=== PATIENT | male | born 1975 | race Asian ===

== ENCOUNTER 2021-04-08 17:57 | Inpatient (IN) | payer MEDICARE ==
[2021-04-08] MEDS ORDERED: LORazepam 2 MG/ML VIAL ONE (18:30)
[2021-04-08] MEDS ORDERED: HALOPERIDOL LACTATE 5 MG/1 ML INJ IM PRN (19:58)
[2021-04-08] MEDS ORDERED: LORazepam 2 MG/ML VIAL IM PRN (19:58)
--- NOTE | 2021-04-08 19:59 | Emergency Department Report ---
ED General Adult HPI - General Chief complaint: Psych Stated complaint: I am fine, how are you PUI?: No Time Seen by Provider: 04/08/21 19:31 Source: patient, RN notes reviewed, old records reviewed Mode of arrival: Ambulatory Limitations: Altered Mental Status, Other (Disorganized behavior and altered mental status) - History of Present Illness Initial comments: The patient was evaluated in the emergency department for symptoms described in the history of present illness. He/she was evaluated in the context of the global COVID-19 pandemic, which necessitated consideration that the patient might be at risk for infection with the virus that causes COVID-19. Institutional protocols and algorithms that pertain to the evaluation of patients at risk for COVID-19 are in a state of rapid change based on information released by regulatory bodies including the CDC and federal and state organizations. These policies and algorithms were followed during the patient's care in the emergency department. Please note that these policies, procedures and recommendations changed on a rapid basis. The patient is a 46-year-old gentleman. He is not known to myself previously. He presented to the ER with a triage nurse articulated complaint of "presents to ER nonverbal staring into space." It is documented that he has a past medical history of psychiatric disease. The patient is not accompanied by friends or family at this time for additional information or collateral information. The patient denies physical pain. The patient denies homicidality/suicidality. The patient tells me that he lives in a foster home. He knows that he is at a hospital, knows the month, and is able to identify the president. He denies physical pain. However, he is very bizarre and disorganized. He cannot tell me why he is here. He is not quite sure how he arrived to this emergency room. He is not sure if he takes any medications. -: unknown - Related Data Allergies Allergy/AdvReac Type Severity Reaction Status Date / Time No Known Allergies Allergy Verified 04/08/21 18:03 ED Review of Systems ROS: Stated complaint: EVALUATION Other details as noted in HPI Comment: Unobtainable due to pts medical conditions Constitutional: denies: fever Eyes: denies: eye discharge ENT: denies: epistaxis Respiratory: denies: cough Cardiovascular: denies: chest pain Gastrointestinal: denies: abdominal pain Genitourinary: denies: dysuria Neurological: confusion Psychiatric: denies: homicidal thoughts, suicidal thoughts ED Past Medical Hx - Past Medical History Previous Medical History?: Yes Hx Psychiatric Treatment: Yes - Surgical History Past Surgical History?: No - Social History Smoking Status: Unknown if ever smoked Substance Use Type: None ED Physical Exam - General Limitations: Other (Disorganized behavior. Patient confusion.) General appearance: anxious - Head Head exam: Present: atraumatic, normocephalic - Eye Eye exam: Present: normal appearance, EOMI. Absent: nystagmus - ENT ENT exam: Present: normal exam, normal orophraynx, mucous membranes moist, normal external ear exam - Neck Neck exam: Present: normal inspection, full ROM. Absent: tenderness, meningismus - Respiratory Respiratory exam: Present: normal lung sounds bilaterally. Absent: respiratory distress, wheezes, rales, rhonchi, stridor, decreased breath sounds - Cardiovascular Cardiovascular Exam: Present: regular rate, normal rhythm, normal heart sounds. Absent: bradycardia, tachycardia, irregular rhythm, systolic murmur, diastolic murmur, rubs, gallop - GI/Abdominal GI/Abdominal exam: Present: soft. Absent: distended, tenderness, guarding, rebound, rigid, pulsatile mass - Rectal Rectal exam: Present: deferred - Extremities Exam Extremities exam: Present: normal inspection, full ROM, other (2+ pulses noted in the bilateral upper and lower extremities. There is no palpable cord. negative Homans sign. Muscular compartments are soft. The pelvis is stable.). Absent: pedal edema, calf tenderness - Back Exam Back exam: Present: normal inspection, full ROM. Absent: tenderness, CVA tenderness (R), CVA tenderness (L), paraspinal tenderness, vertebral tenderness - Neurological Exam Neurological exam: Present: altered, normal gait, reflexes normal, other (No facial droop. Tongue midline. Extraocular movements intact bilaterally. Facial sensation intact to light touch in V1, V2, V3 distribution bilaterally. 5 and a 5 strength in 4 extremities. Sensation intact to light touch in 4 extremities.). Absent: motor sensory deficit - Psychiatric Psychiatric exam: Present: flat affect. Absent: homicidal ideation, suicidal ideation - Skin Skin exam: Present: warm, dry, intact, normal color. Absent: rash ED Course Vital Signs 04/08/21 04/08/21 18:04 18:32 Pulse Rate 108 H Respiratory 16 Rate Blood Pressure 144/110 [Left] O2 Sat by Pulse 97 96 Oximetry - Reevaluation(s) Reevaluation #1: 04/08/21 21:38 Differential diagnosis, including but not limited to: Psychosis, psychogenic polydipsia, medical clearance for psychiatric placement, urinary tract in fection, pneumonia, electrolyte derangement, thyroid derangement Assessment and plan: 46-year-old gentleman presenting with disorganized behavior. He appears to be psychotic. He is not homicidal suicidal. He is cooperative. His physical exam so far is unremarkable. He walks with a steady gait. Laboratory studies demonstrate hyponatremia. Suspect that this is euvolemic, or hypervolemic hyponatremia. I will place this patient on fluid restriction. Urine studies are pending. He cannot be medically cleared from the emergency room for the purposes of psychiatric placement. A 1013 is ordered. Psychiatric consultation is ordered. I contacted the hand method lasting machine operator on-call, Dr. Renteria. Discussed the patient's history, physical, laboratory studies and imaging studies, plan of care, and overall clinical impression. She will follow in consultation. Recommends every 4 hours sodium checks. We both agree that patient does not require hypertonic saline at this time 04/08/21 21:39 Reevaluation #2: 04/08/21 21:41 Temperature is 97 degrees. 04/08/21 22:[address] scan of the brain is negative for acute findings. Hospital physician, Mary Jesus to admit to [facility] ED Medical Decision Making - Lab Data Result diagrams: 04/08/21 21:22 04/08/21 20:03 Vital Signs 04/08/21 04/08/21 18:04 18:32 Pulse Rate 108 H Respiratory 16 Rate Blood Pressure 144/110 [Left] O2 Sat by Pulse 97 96 Oximetry Lab Results 04/08/21 04/08/21 04/08/21 Range/Units 20:03 20:03 20:03 Sodium 123 L (137-145) mmol/L Potassium 3.9 (3.6-5.0) mmol/L Chloride 90.7 L (98-107) mmol/L Carbon Dioxide 21 L (22-30) mmol/L Anion Gap 15 mmol/L BUN 5 L (9-20) mg/dL Creatinine 0.9 (0.8-1.3) mg/dL Estimated GFR > 60 ml/min BUN/Creatinine Ratio 6 % Glucose 104 H (75-100) mg/dL Calcium 9.4 (8.4-10.2) mg/dL Total Creatine Kinase (55-170) units/L TSH (0.270-4.200) mlU/mL Salicylates < 0.3 L (2.8-20.0) mg/dL Acetaminophen 5.0 L (10.0-30.0) ug/mL Phenytoin 0.8 L (10.0-20.0) ug/mL Valproic Acid < 2.8 L (50-100) ug/mL [place] 0.7 (0.0-1.2) mmol/L Plasma/Serum Alcohol (0-0.07) % 04/08/21 04/08/21 04/08/21 Range/Units 20:03 20:03 20:03 Sodium (137-145) mmol/L Potassium (3.6-5.0) mmol/L Chloride (98-107) mmol/L Carbon Dioxide (22-30) mmol/L Anion Gap mmol/L BUN (9-20) mg/dL Creatinine (0.8-1.3) mg/dL Estimated GFR ml/min BUN/Creatinine Ratio % Glucose (75-100) mg/dL Calcium (8.4-10.2) mg/dL Total Creatine Kinase 344 H (55-170) units/L TSH 1.680 (0.270-4.200) mlU/mL Salicylates (2.8-20.0) mg/dL Acetaminophen (10.0-30.0) ug/mL Phenytoin (10.0-20.0) ug/mL Valproic Acid (50-100) ug/mL [place] (0.0-1.2) mmol/L Plasma/Serum Alcohol < 0.01 (0-0.07) % - EKG Data -: EKG Interpreted by [place] EKG shows normal: sinus rhythm Rate: normal - EKG Data When compared to previous EKG there are: previous EKG unavailable 04/08/21 21:22 The EKG is interpreted at 20: 07 Sinus rhythm, rate 84 bpm. Normal axis, QTC 440 ms. He has Q waves noted in inferior leads. He has low voltage in the lateral leads. This is an abnormal EKG. The EKG is not a STEMI 04/08/21 21:28 - Radiology Data Radiology results: pending, report reviewed, image reviewed CHEST 1 VIEW 04/08/2021 7:29 PM INDICATION / CLINICAL INFORMATION: Medical Clearance Psych. COMPARISON: None available. FINDINGS: SUPPORT DEVICES: None. HEART / MEDIASTINUM: No significant abnormality. LUNGS / PLEURA: No significant pulmonary or pleural abnormality. No pneumothorax. ADDITIONAL FINDINGS: No significant additional findings. IMPRESSION: 1. No acute findings. Signer Name: Pavel Zendejas MD Signed: 04/08/2021 7:32 PM Workstation Name: [id number] Critical care attestation.: If time is entered above; I have spent that time in minutes in the direct care of this critically ill patient, excluding procedure time. ED Disposition Clinical Impression: Hyponatremia, Disorganized behavior, Medical clearance for psychiatric admission Disposition: ADMITTED INPATIENT Is pt being admited?: Yes Does the pt Need Aspirin: No Condition: Good Referrals: PRIMARY CARE, [Primary Care Provider] - 3-5 Days
--- NOTE | 2021-04-08 20:37 | XRay Report ---
CHEST 1 VIEW 04/08/2021 7:29 PM INDICATION / CLINICAL INFORMATION: Medical Clearance Psych. COMPARISON: None available. FINDINGS: SUPPORT DEVICES: None. HEART / MEDIASTINUM: No significant abnormality. LUNGS / PLEURA: No significant pulmonary or pleural abnormality. No pneumothorax. ADDITIONAL FINDINGS: No significant additional findings. IMPRESSION: 1. No acute findings. Signer Name: Pavel Zendejas MD Signed: 04/08/2021 8:32 PM Workstation Name: [id number]
[2021-04-08 20:54] LABS: BUN/Creatinine Ratio 6; Blood Urea Nitrogen 5 mg/dL (9-20); Calcium 9.4 mg/dL (8.4-10.2); Hemolysis Index 20
[2021-04-08 21:31] LABS: Basophils # (Auto) 0.1 K/mm3 (0.0-0.1); Basophils % (Auto) 0.7 % (0.0-1.8); Hematocrit 35.8 % (35.5-45.6); Hemoglobin 12.1 gm/dl (11.8-15.2); Lymphocytes % (Auto) 30.5 % (13.4-35.0); Mean Corpuscular HGB Conc 34 % (32-34); Mean Corpuscular Volume 94 fl (84-94); Monocytes # (Auto) 0.6 K/mm3 (0.0-0.8); Monocytes % (Auto) 6.4 % (0.0-7.3); Platelet Count 366 K/mm3 (140-440); Red Blood Count 3.83 M/mm3 (3.65-5.03); Red Cell Distribution Width 12.8 % (13.2-15.2)
--- NOTE | 2021-04-08 21:39 | Cat Scan Report ---
CT BRAIN: 04/08/2021 INDICATION / CLINICAL INFORMATION: Medical Clearance Psych. COMPARISON: None available. FINDINGS: BRAIN/INTRACRANIAL STRUCTURES: Unenhanced CT images of the brain demonstrate no evidence of intracran ial abnormality. Ventricles and sulci are normal in size and shape. There is no evidence of ischemic injury, hemorrhage, or mass. There are no abnormal extra-axial fluid collections. EXTRACRANIAL STRUCTURES: Unremarkable. IMPRESSION: Negative unenhanced CT of the brain. All CT scans at this location are performed using dose reduction to ALARA by means of automated expos ure control. Signer Name: Silas Garsia MD Signed: 04/08/2021 9:35 PM Workstation Name: [id number]
--- NOTE | 2021-04-08 21:51 | Event Note ---
Date: 04/08/21 Consulted for moderate hyponatremia Patient with history of psych disorder, details unknown, details unavailable at this time as patient is poor historian and is unaccompanied. No prior history or medications present on chart review, possibly has underlying schizophrenia based on limited history available Patient is currently not comatosed, he has no nausea, vomiting, headaches or seizures. Unclear baseline mental status but is oriented x 2. No immediate indication for hypertonic saline Check sodium q4h with close/frequent monitoring of neuro status Check urine studies - ordered Check serum and urine osm - ordered Fluid restriction to 1 L Start sodium chloride tabs Please notify if sodium continues to decline, if decline in mental status is noticed or patient experiences vomiting, headaches or seizures. Gina Sandoval MD
[2021-04-08] MEDS ORDERED: MAGNESIUM HYDROXIDE (MOM) ORAL LIQD UDC PO PRN (22:28)
[2021-04-08] MEDS ORDERED: MORPHINE 4 MG/1 ML INJ IV PRN (22:28)
[2021-04-08] MEDS ORDERED: ONDANSETRON 4 MG/2 ML INJ IV PRN (22:28)
[2021-04-08] MEDS ORDERED: MORPHINE 2 MG/1 ML INJ IV PRN (22:28)
[2021-04-08] MEDS ORDERED: ACETAMINOPHEN 325 MG TAB PO PRN (22:28)
--- NOTE | 2021-04-08 22:32 | History and Physical Report ---
History of Present Illness Date of examination: 04/08/21 Date of admission: 04/08/2021 Chief complaint: Altered mental status History of present illness: 46-year-old -Tongan male with known history of mental illness who lives in a foster home was brought into the emergency room today because of bizarre and disorganized behavior. Most of the history was gotten from the ER staff as patient is now willing to give any history at this time. He however is not very clear as to how he arrived in the emergency room. He will not answer any further questions. According to ER staff he was able to respond to some questions earlier today. He denies any homicidal suicidal ideations at that time. He is not sure if he takes any medications. Patient is here for medical clearance for further psychiatric evaluation. Work-up in the emergency room today, significant findings were that of sodium of 123. Urine studies is currently being awaited. CT scan of the head is negative Facsimile Operator on-call was consulted by ER physician and recommendation is to have patient on fluid restriction. BMP every 4 hours and also to be placed on sodium tablets. Past History Past Medical History: other Past Surgical History: Other (Unobtainable) Social history: other (Patient lives in a foster home) Family history: other (Unobtainable) Medications and Allergies Allergies Allergy/AdvReac Type Severity Reaction Status Date / Time No Known Allergies Allergy Verified 04/08/21 18:03 Active Meds: Active Medications Haloperidol Lactate (Haloperidol Lactate 5 Mg/1 Ml Inj) 5 mg IM Q6HR PRN PRN Reason: Agitation Lorazepam (Lorazepam 2 Mg/Ml Vial) 2 mg IM Q4HR PRN PRN Reason: Agitation Sodium Chloride (Sodium Chloride 1 Gm Tab) 1 gm PO TID LORI Review of Systems ROS unobtainable: due to mental status Exam - Constitutional Vitals: Temp Pulse Resp BP Pulse Ox 108 H 16 144/110 96 04/08/21 18:04 04/08/21 18:04 04/08/21 18:04 04/08/21 18:32 General appearance: Present: no acute distress, well-nourished - EENT Eyes: Present: PERRL, EOM intact, scleral icterus ENT: hearing intact, clear oral mucosa, dentition normal - Neck Neck: Present: supple, normal ROM - Respiratory Respiratory effort: normal Respiratory: bilateral: CTA - Cardiovascular Rhythm: regular Heart Sounds: Present: S1 & S2. Absent: gallop, systolic murmur, diastolic murmur, rub, click - Extremities Extremities: no ischemia, pulses intact, pulses symmetrical, No edema, normal temperature, normal color, Full ROM Peripheral Pulses: within normal limits - Abdominal General gastrointestinal: Present: soft, non-tender, non-distended, normal bowel sounds. Absent: mass - Integumentary Integumentary: Present: clear, warm, dry, normal turgor. Absent: rash - Musculoskeletal Musculoskeletal: strength equal bilaterally - Psychiatric Psychiatric: appropriate mood/affect, intact judgment & insight, memory intact, cooperative - Neurologic Neurologic: CNII-XII intact, no focal deficits, moves all extremities Results - Labs CBC & Chem 7: 04/08/21 21:22 04/08/21 20:03 Labs: Abnormal lab results 04/08/21 04/08/21 04/08/21 Range/Units 20:03 20:03 20:03 RDW (13.2-15.2) % Sodium 123 L (137-145) mmol/L Chloride 90.7 L (98-107) mmol/L Carbon Dioxide 21 L (22-30) mmol/L BUN 5 L (9-20) mg/dL Glucose 104 H (75-100) mg/dL Total Creatine Kinase (55-170) units/L Salicylates < 0.3 L (2.8-20.0) mg/dL Acetaminophen 5.0 L (10.0-30.0) ug/mL Phenytoin 0.8 L (10.0-20.0) ug/mL Valproic Acid < 2.8 L (50-100) ug/mL 04/08/21 04/08/21 Range/Units 20:03 21:22 RDW 12.8 L (13.2-15.2) % Sodium (137-145) mmol/L Chloride (98-107) mmol/L Carbon Dioxide (22-30) mmol/L BUN (9-20) mg/dL Glucose (75-100) mg/dL Total Creatine Kinase 344 H (55-170) units/L Salicylates (2.8-20.0) mg/dL Acetaminophen (10.0-30.0) ug/mL Phenytoin (10.0-20.0) ug/mL Valproic Acid (50-100) ug/mL Assessment and Plan - Patient Problems (1) Disorganized behavior Current Visit: Yes Status: Acute Plan to address problem: Patient has known history of mental illness. Will monitor mental status and place consult to mental health for further evaluation. (2) Hyponatremia Current Visit: Yes Status: Acute Plan to address problem: Patient to be placed on fluid restriction and also placed on sodium tablets. Consult placed to nephrology for evaluation. (3) DVT prophylaxis Current Visit: Yes Status: Acute Plan to address problem: We will place patient on subcutaneous heparin. (4) Full code status Current Visit: Yes Status: Acute Plan to address problem: Patient is full code.
[2021-04-08 23:56] LABS: BUN/Creatinine Ratio 6; Blood Urea Nitrogen 5 mg/dL (9-20); Hemolysis Index 3
[2021-04-09 02:59] LABS: BUN/Creatinine Ratio 6; Blood Urea Nitrogen 5 mg/dL (9-20); Hemolysis Index 8
[2021-04-09] MEDS: HEPARIN 5,000 UNIT/1 ML VIAL SUB-Q SCH ×3 (05:50→21:10)
[2021-04-09 05:51] LABS: Bilirubin,Urine NEG (Negative); Blood,Urine NEG (Negative); Color,Urine Colorless (Yellow); Protein,Urine <15 mg/dL mg/dL (Negative); RBC,Urine < 1.0 /HPF (0.0-6.0); Urobilinogen,Urine < 2.0 mg/dL (<2.0)
[2021-04-09 06:03] LABS: WBC,Urine < 1.0 /HPF (0.0-6.0)
[2021-04-09 06:16] LABS: Amphetamine Screen,Urine PRESUMPTIVE NEGATIVE; Benzodiazepines Screen,Urine PRESUMPTIVE NEGATIVE; Cannabinoid Screen,Urine PRESUMPTIVE NEGATIVE; Cocaine Screen,Urine PRESUMPTIVE NEGATIVE; Methadone Screen,Urine PRESUMPTIVE NEGATIVE; Opiate Screen,Urine PRESUMPTIVE NEGATIVE
[2021-04-09 06:43] LABS: Creatinine,Urine 20.3 mg/dL (0.1-20.0)
[2021-04-09 09:41] LABS: Osmolality,Urine 49 Mosm/kg
--- NOTE | 2021-04-09 09:47 | Consultation ---
History of Present Illness - Reason for Consult Consult date: 04/09/21 hyponatremia Requesting physician: PAMELLA SERRANO - History of Present Illness 46-year-old -Y[place]i male with known history of mental illness who lives in a foster home was brought into the emergency room yesterday because of bizarre and disorganized behavior. Most of the history was gotten from patient's admission records as patient is a poor historian. He will not answer any further questions. He denies any homicidal suicidal ideations at that time. He is not sure if he takes any medications. Patient is here for medical clearance for further psychiatric evaluation. Work-up in the emergency room today, significant findings were that of sodium of 123. Therefore this consultation . CT scan of the head is negative. Patient does admit to drinking a lot of water. Patient denies any nausea vomiting or diarrhea at this time Past History Past Medical History: other (Unknown) Past Surgical History: Other (Unobtainable) Social history: other (Patient lives in a foster home) Family history: other (Unobtainable) Medications and Allergies Allergies Allergy/AdvReac Type Severity Reaction Status Date / Time No Known Allergies Allergy Verified 04/08/21 18:03 Active Meds: Active Medications Acetaminophen (Acetaminophen 325 Mg Tab) 650 mg PO Q4H PRN PRN Reason: Pain MILD(1-3)/Fever >100.5/BLANCO Haloperidol Lactate (Haloperidol Lactate 5 Mg/1 Ml Inj) 5 mg IM Q6HR PRN PRN Reason: Agitation Heparin Sodium (Porcine) (Heparin 5,000 Unit/1 Ml Vial) 5,000 unit SUB-Q Q8HR LORI Last Admin: 04/09/21 05:50 Dose: 5,000 unit Documented by: Lorazepam (Lorazepam 2 Mg/Ml Vial) 2 mg IM Q4HR PRN PRN Reason: Agitation Magnesium Hydroxide (Magnesium Hydroxide (Mom) Oral Liqd Udc) 30 ml PO Q4H PRN PRN Reason: Constipation Morphine Sulfate (Morphine 2 Mg/1 Ml Inj) 2 mg IV Q4H PRN PRN Reason: Pain, Moderate (4-6) Morphine Sulfate (Morphine 4 Mg/1 Ml Inj) 4 mg IV Q4H PRN PRN Reason: Pain , Severe (7-10) Ondansetron HCl (Ondansetron 4 Mg/2 Ml Inj) 4 mg IV Q8H PRN PRN Reason: Nausea And Vomiting Sodium Chloride (Sodium Chloride 1 Gm Tab) 1 gm PO TID LORI Sodium Chloride (Sodium Chloride 0.9% 10 Ml Flush Syringe) 10 ml IV BID LORI Sodium Chloride (Sodium Chloride 0.9% 10 Ml Flush Syringe) 10 ml IV PRN PRN PRN Reason: LINE FLUSH Review of Systems ROS unobtainable: due to mental status Exam - Vital Signs Vital signs: Vital Signs Pulse Resp BP Pulse Ox 108 H 16 144/110 97 04/08/21 18:04 04/08/21 18:04 04/08/21 18:04 04/08/21 18:04 - General Appearance General appearance: well-developed, well-nourished, appears stated age EENT: PERRL, mucous membranes moist Neck: Present: neck supple Respiratory: Clear to Ascultation Heart: regular, normal heart rate Gastrointestinal: Present: normal, normoactive bowel sounds Integumentary: other Results - Lab Results 04/08/21 21:22 04/09/21 02:17 Most recent lab results Calcium 9.0 mg/dL (8.4-10.2) 04/09/21 02:17 Urine Creatinine 20.3 mg/dL (0.1-20.0) H 04/09/21 05:30 Urine Sodium 10 mmol/L 04/09/21 05:30 Assessment and Plan Impression * Hyponatremia * History of psychiatric disorder Recommendations * Patient is clinically euvolemic at this time. 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 Patient does admit to drinking a lot of water. His urine specific gravity is also very low and patient is self diuresing at this time. His urine osmolality is 49 and urine sodium is 10 * Serum sodium is slowly improving. Work-up for hyponatremia as ordered * Shall restrict free water intake and monitor serum sodium closely. If rise of serum sodium is too rapid, may need to add hypotonic fluid * Avoid medications that can aggravate hyponatremia * Thank you very much for the consultation. Shall follow along with you
--- NOTE | 2021-04-09 11:31 | Consultation ---
History of Present Illness - Reason for Consult Consult date: 04/09/21 Reason for consult: phsychosis - History of Present Psychiatric Illness Per ER Note: The patient is a 46-year-old gentleman. He is not known to myself previously. He presented to the ER with a triage nurse articulated complaint of "presents to ER nonverbal staring into space." It is documented that he has a past medical history of psychiatric disease. The patient is not accompanied by friends or family at this time for additional information or collateral information. The patient denies physical pain. The patient denies homicidality/suicidality. The patient tells me that he lives in a foster home. He knows that he is at a hospital, knows the month, and is able to identify the president. He denies physical pain. However, he is very bizarre and disorganized. He cannot tell me why he is here. He is not quite sure how he arrived to this emergency room. He is not sure if he takes any medications. Jl Garces is a 46/o male patient I evaluated today. During my evaluation the patient is lying in bed awake. He appears to be responding to internal stimuli. He is staring intensely. He is slow to respond, and I have to repeat questions 2 and 3 times before he answers. The patient is a/o x 3, but his thoughts are disorganized. He has poor insight. He tells me that he is doing "good and bad." He says he has a history of schizophrenia and takes "ativan, klonopin, clozaril, trazodone and seroquel." The patient also says "I have a concussion, I mean a relapse cussion." He says he's " and ." He says he hears voices, of people singing and music. He says he sees images of animated figures. He denies SI/HI Psych History Diagnoses: schizophrenia Suicide attempts or Self-harm behavior: Denies Prior psychiatric hospitalizations: Yes Substance Abuse history: Denies Previous psychiatric medications tried: ativan, klopin, clozaril, trazodone, seroquel Outpatient treatment: Yes PAST MEDICAL HISTORY: none reported Family Psychiatric History: None reported or documented SOCIAL HISTORY Marital Status: /. Living Arrangements: Homeless Employment Status: Disabled Access to guns/weapons: Denies Education: History of Abuse: Denies Legal History: None reported REVIEW OF SYSTEMS Constitutional: Negative for weight loss ENT: Negative for stridor Respiratory: Negative for cough or hemoptysis All other systems reviewed and are negative MENTAL STATUS EXAMINATION General Appearance and Behavior: Age appropriate, good hygiene, wearing appropriate clothes, calm, staring intensely Cooperation: participating Psychomotor Behavior: unremarkable and within normal limits Mood: "good and bad" Affect and affective range: flat Thought Process: disorganized, responding to internal stimuli Thought Content: None Speech: Normal volume, Regular rate and rhythm, Suicidal Ideation: Denies Homicidal Ideation:Denies Hallucinations: A/V Delusions: None elicited Impulse Control: Limited Insight and Judgment: Poor insight and poor judgment, Memory: Limited Attention: Distracted Orientation: Alert, oriented Assessment and Plan (1) Schizophrenia Current Visit: Yes Status: Acute Treatment Plan 1013 Klonopin 0.25mg po BID Trazodone 50mg po qhs Seroquel 50mg po BID Sitter: per primary Medical: per primary Disposition: Recommend acute psychiatric inpatient treatment once medically cleared Will follow. Thanks Case staffed with Dr. Streeter Medications and Allergies Allergies Allergy/AdvReac Type Severity Reaction Status Date / Time No Known Allergies Allergy Verified 04/08/21 18:03 Active Meds: Active Medications Acetaminophen (Acetaminophen 325 Mg Tab) 650 mg PO Q4H PRN PRN Reason: Pain MILD(1-3)/Fever >100.5/BLANCO Haloperidol Lactate (Haloperidol Lactate 5 Mg/1 Ml Inj) 5 mg IM Q6HR PRN PRN Reason: Agitation Heparin Sodium (Porcine) (Heparin 5,000 Unit/1 Ml Vial) 5,000 unit SUB-Q Q8HR [facility] Last Admin: 04/09/21 05:50 Dose: 5,000 unit Documented by: Lorazepam (Lorazepam 2 Mg/Ml Vial) 2 mg IM Q4HR PRN PRN Reason: Agitation Magnesium Hydroxide (Magnesium Hydroxide (Mom) Oral Liqd Udc) 30 ml PO Q4H PRN PRN Reason: Constipation Morphine Sulfate (Morphine 2 Mg/1 Ml Inj) 2 mg IV Q4H PRN PRN Reason: Pain, Moderate (4-6) Morphine Sulfate (Morphine 4 Mg/1 Ml Inj) 4 mg IV Q4H PRN PRN Reason: Pain , Severe (7-10) Ondansetron HCl (Ondansetron 4 Mg/2 Ml Inj) 4 mg IV Q8H PRN PRN Reason: Nausea And Vomiting Sodium Chloride (Sodium Chloride 1 Gm Tab) 1 gm PO TID LORI Sodium Chloride (Sodium Chloride 0.9% 10 Ml Flush Syringe) 10 ml IV BID LORI Sodium Chloride (Sodium Chloride 0.9% 10 Ml Flush Syringe) 10 ml IV PRN PRN PRN Reason: LINE FLUSH Mental Status Exam - Vital signs Last Vital Signs Temp 97.8 F 04/09/21 03:28 Pulse 73 04/09/21 03:28 Resp 18 04/09/21 05:03 BP 136/95 04/09/21 03:28 Pulse Ox 98 04/09/21 05:03 Results Result Diagrams: 04/08/21 21:22 04/09/21 02:17 Abnormal lab results 04/08/21 04/08/21 04/08/21 Range/Units 20:03 20:03 20:03 RDW (13.2-15.2) % Sodium 123 L (137-145) mmol/L Potassium (3.6-5.0) mmol/L Chloride 90.7 L (98-107) mmol/L Carbon Dioxide 21 L (22-30) mmol/L BUN 5 L (9-20) mg/dL Glucose 104 H (75-100) mg/dL Total Creatine Kinase (55-170) units/L Ur Specific [place] (1.003-1.030) Urine Creatinine (0.1-20.0) mg/dL Urine Chloride (110-250) mmolL Salicylates < 0.3 L (2.8-20.0) mg/dL Acetaminophen 5.0 L (10.0-30.0) ug/mL Phenytoin 0.8 L (10.0-20.0) ug/mL Valproic Acid < 2.8 L (50-100) ug/mL 04/08/21 04/08/21 04/08/21 Range/Units 20:03 21:22 23:08 RDW 12.8 L (13.2-15.2) % Sodium 126 L (137-145) mmol/L Potassium 3.4 L (3.6-5.0) mmol/L Chloride 94.3 L (98-107) mmol/L Carbon Dioxide 20 L (22-30) mmol/L BUN 5 L (9-20) mg/dL Glucose 105 H (75-100) mg/dL Total Creatine Kinase 344 H (55-170) units/L Ur Specific [place] (1.003-1.030) Urine Creatinine (0.1-20.0) mg/dL Urine Chloride (110-250) mmolL Salicylates (2.8-20.0) mg/dL Acetaminophen (10.0-30.0) ug/mL Phenytoin (10.0-20.0) ug/mL Valproic Acid (50-100) ug/mL 04/09/21 04/09/21 04/09/21 Range/Units 02:17 05:30 05:30 RDW (13.2-15.2) % Sodium 128 L (137-145) mmol/L Potassium 3.4 L (3.6-5.0) mmol/L Chloride 95.9 L (98-107) mmol/L Carbon Dioxide 21 L (22-30) mmol/L BUN 5 L (9-20) mg/dL Glucose (75-100) mg/dL Total Creatine Kinase (55-170) units/L Ur Specific [place] 1.001 L (1.003-1.030) Urine Creatinine 20.3 H (0.1-20.0) mg/dL Urine Chloride 10.0 L (110-250) mmolL Salicylates (2.8-20.0) mg/dL Acetaminophen (10.0-30.0) ug/mL Phenytoin (10.0-20.0) ug/mL Valproic Acid (50-100) ug/mL All other labs normal.
--- NOTE | 2021-04-09 11:47 | Progress Note ---
Assessment and Plan Assessment and plan: 46-year-old -Citizen Of [place] male with known history of mental illness who lives in a foster home was brought into the emergency room today because of bizarre and disorganized behavior. Most of the history was gotten from the ER staff as patient is now willing to give any history at this time. He however is not very clear as to how he arrived in the emergency room. He will not answer any further questions. According to ER staff he was able to respond to some questions earlier today. He denies any homicidal suicidal ideations at that time. He is not sure if he takes any medications. Patient is here for medical clearance for further psychiatric evaluation. Work-up in the emergency room today, significant findings were that of sodium of 123. Urine studies is currently being awaited. CT scan of the head is negative Business Intelligence Analyst on-call was consulted by ER physician and recommendation is to have patient on fluid restriction. BMP every 4 hours and also to be placed on sodium tablets. 04/09: Patient who also is a 1013 has been seen by psychiatry believes this underlying schizophrenia and takes "ativan, klonopin, clozaril, trazodone and seroque He has a history that includes medications such as He lives with a foster family. Per the act team from [place] the patient has recurrent h yponatremia this could be related to his insatiable intake of fluids. We will continue to monitor for gradual correction. [place] facility believes that they may be able to take the patient to their facility tomorrow as the patient requires inpatient psych management. (1) schizophrenia Current Visit: Yes Status: Acute Plan to address problem: Patient has known history of mental illness. Will monitor mental status and place consult to mental health for further evaluation. (2) Hyponatremia Current Visit: Yes Status: Acute Plan to address problem: Patient to be placed on fluid restriction and also placed on sodium tablets. Consult placed to nephrology for evaluation. (3) DVT prophylaxis Current Visit: Yes Status: Acute Plan to address problem: We will place patient on subcutaneous heparin. (4) Full code status Current Visit: Yes Status: Acute Plan to address problem: Patient is full code. History Interval history: Patient seen and examined this morning he looks at me but does not answer any questions. Although the nurse states that he answered some questions. Someone from [place] act team did call me although they ultimately spoke to the psych team here. They reported that the patient has insatiable water intake and has had recurrent hyponatremia as a result. Hospitalist Physical - Physical exam Narrative exam: VITAL SIGNS: Reviewed. GENERAL: The patient appears normally developed, Vital signs as documented. HEAD: No signs of head trauma. EYES: Pupils are equal. Extraocular motions intact. EARS: Hearing grossly intact. MOUTH: Oropharynx is normal. NECK: No adenopathy, no JVD. CHEST: Chest with clear breath sounds bilaterally. No wheezes, rales, or rhonchi. CARDIAC: Regular rate and rhythm. S1 and S2, without murmurs, gallops, or rubs. VASCULAR: No Edema. Peripheral pulses normal and equal in all extremities. ABDOMEN: Soft, non tender and non distended. No rebound or guarding, and no masses palpated. Bowel Sounds normal. MUSCULOSKELETAL: Good range of motion of all major joints. Extremities without clubbing, cyanosis or edema. NEUROLOGIC EXAM: Awake but not speaking at least to me but spoke to the nurse. Follows some commands. No focal sensory or strength deficits. PSYCHIATRIC: Mood normal. SKIN: detail exam as documented in skin assessment - Constitutional Vitals: Temp Pulse Resp BP Pulse Ox 97.8 F 73 18 136/95 98 04/09/21 03:28 04/09/21 03:28 04/09/21 05:03 04/09/21 03:28 04/09/21 05:03 General appearance: Present: no acute distress, well-nourished Results - Labs CBC & Chem 7: 04/08/21 21:22 04/09/21 13:01 Labs: Laboratory Last Values WBC 9.9 K/mm3 (4.5-11.0) 04/08/21 21: RBC 3.83 M/mm3 (3.65-5.03) 04/08/21 21: Hgb 12.1 gm/dl (11.8-15.2) 04/08/21: Hct 35.8 % (35.5-45.6) 04/08/21 21: MCV 94 fl (84-94) 04/08/21 21: MCH 32 pg (28-32) 04/08/21: MCHC 34 % (32-34) 04/08/21: RDW 12.8 % (13.2-15.2) L 04/08/21 21:22 Plt Count 366 K/mm3 (140-440) 04/08/21 21:22 Lymph % (Auto) 30.5 % (13.4-35.0) 04/08/21 21:22 Cache % (Auto) 6.4 % (0.0-7.3) 04/08/21 21:22 Eos % (Auto) 0.0 % (0.0-4.3) 04/08/21 21:22 Baso % (Auto) 0.7 % (0.0-1.8) 04/08/21 21:22 Lymph # (Auto) 3.0 K/mm3 (1.2-5.4) 04/08/21 21:22 Cache # (Auto) 0.6 K/mm3 (0.0-0.8) 04/08/21 21:22 Eos # (Auto) 0.0 K/mm3 (0.0-0.4) 04/08/21 21:22 Baso # (Auto) 0.1 K/mm3 (0.0-0.1) 04/08/21 21:22 Seg Neutrophils % 62.4 % (40.0-70.0) 04/08/21 21: Seg Neutrophils # 6.2 K/mm3 (1.8-7.7) 04/08/21 21:22 Sodium 128 mmol/L (137-145) L 04/09/21 02:17 Potassium 3.4 mmol/L (3.6-5.0) L 04/09/21 02:17 Chloride 95.9 mmol/L (98-107) L 04/09/21 02:17 Carbon Dioxide 21 mmol/L (22-30) L 04/09/21 02:17 Anion Gap 15 mmol/L 04/09/21 02:17 BUN 5 mg/dL (9-20) L 04/09/21 02:17 Creatinine 0.9 mg/dL (0.8-1.3) 04/09/21 02:17 Estimated GFR > 60 ml/min 04/09/21 02:17 BUN/Creatinine Ratio 6 % 04/09/21 02:17 Glucose 99 mg/dL (75-100) 04/09/21 02:17 Osmolality 257 Mosm/kg 10/12/21 21:35 Calcium 9.0 mg/dL (8.4-10.2) 04/09/21 02:17 Total Creatine Kinase 344 units/L (55-170) H 04/08/21 20:03 TSH 1.680 mlU/mL (0.270-4.200) 04/08/21 20:03 Urine Color Colorless (Yellow) 04/09/21 05:30 Urine Turbidity Clear (Clear) 04/09/21 05:30 Urine pH 6.0 (5.0-7.0) 04/09/21 05:30 Ur Specific [place] 1.001 (1.003-1.030) L 04/09/21 05:30 Urine Protein <15 mg/dl mg/dL (Negative) 04/09/21 05:30 Urine Glucose (UA) Neg mg/dL (Negative) 04/09/21 05:30 Urine Ketones Neg mg/dL (Negative) 04/09/21 05:30 Urine Blood Neg (Negative) 04/09/21 05:30 Urine Nitrite Neg (Negative) 04/09/21 05:30 Urine Bilirubin Neg (Negative) 04/09/21 05:30 Urine Urobilinogen < 2.0 mg/dL (<2.0) 04/09/21 05:30 Ur Leukocyte Esterase Neg (Negative) 04/09/21 05:30 Urine WBC (Auto) < 1.0 /HPF (0.0-6.0) 04/09/21 05:30 Urine RBC (Auto) < 1.0 /HPF (0.0-6.0) 04/09/21 05:30 Urine Osmolality 49 Mosm/kg 04/09/21 05:30 Urine Creatinine 20.3 mg/dL (0.1-20.0) H 04/09/21 05:30 Urine Sodium 10 mmol/L 04/09/21 05:30 Urine Potassium 2.16 mmol/L 04/09/21 05:30 Urine Chloride 10.0 mmolL (110-250) L 04/09/21 05:30 Salicylates < 0.3 mg/dL (2.8-20.0) L 04/08/21 20:03 Urine Opiates Screen Presumptive negative 04/09/21 05:30 Urine Methadone Screen Presumptive negative 04/09/21 05:30 Acetaminophen 5.0 ug/mL (10.0-30.0) L 04/08/21 20:03 Ur Barbiturates Screen Presumptive negative 04/09/21 05:30 Phenytoin 0.8 ug/mL (10.0-20.0) L 04/08/21 20:03 Valproic Acid < 2.8 ug/mL (50-100) L 04/08/21 20:03 Ur Phencyclidine Scrn Presumptive negative 04/09/21 05:30 Ur Amphetamines Screen Presumptive negative 04/09/21 05:30 U Benzodiazepines Scrn Presumptive negative 04/09/21 05:30 Tea 0.7 mmol/L (0.0-1.2) 04/08/21 20:03 Urine Cocaine Screen Presumptive negative 04/09/21 05:30 U Marijuana (THC) Screen Presumptive negative 04/09/21 05:30 Drugs of Abuse Note Disclamer 04/09/21 05:30 Plasma/Serum Alcohol < 0.01 % (0-0.07) 04/08/21 20:03 Shelton/IV: Voiding Method Urinal Active Medications - Current Medications Current Medications: Generic Name Dose Route Start Last Admin Trade Name Freq PRN Reason Stop Dose Admin Acetaminophen 650 mg 04/08/21 22:28 Acetaminophen 325 Mg Tab PO Q4H PRN Pain MILD(1-3)/Fever >100.5/BLANCO Haloperidol Lactate 5 mg 04/08/21 19:58 Haloperidol Lactate 5 Mg/1 Ml Inj IM Q6HR PRN Agitation Heparin Sodium (Porcine) 5,000 unit 04/09/21 06:00 04/09/21 05:50 Heparin 5,000 Unit/1 Ml Vial SUB-Q 5,000 unit Q8HR LORI Administration Lorazepam 2 mg 04/08/21 19:58 Lorazepam 2 Mg/Ml Vial IM Q4HR PRN Agitation Magnesium Hydroxide 30 ml 04/08/21 22:28 Magnesium Hydroxide (Mom) Oral Liqd Udc PO Q4H PRN Constipation Morphine Sulfate 2 mg 04/08/21 22:28 Morphine 2 Mg/1 Ml Inj IV Q4H PRN Pain, Moderate (4-6) Morphine Sulfate 4 mg 04/08/21 22:28 Morphine 4 Mg/1 Ml Inj IV Q4H PRN Pain , Severe (7-10) Ondansetron HCl 4 mg 04/08/21 22:28 Ondansetron 4 Mg/2 Ml Inj IV Q8H PRN Nausea And Vomiting Sodium Chloride 1 gm 04/09/21 08:00 Sodium Chloride 1 Gm Tab PO TID LORI Sodium Chloride 10 ml 04/09/21 10:00 Sodium Chloride 0.9% 10 Ml Flush Syringe IV BID LORI Sodium Chloride 10 ml 04/08/21 22:28 Sodium Chloride 0.9% 10 Ml Flush Syringe IV PRN PRN LINE FLUSH
[2021-04-09] MEDS: clonazePAM 0.5 MG TAB PO SCH ×2 (13:03→21:10)
[2021-04-09] MEDS: SODIUM CHLORIDE 1 GM TAB PO SCH ×2 (13:03→15:35)
[2021-04-09] MEDS: QUEtiapine 25 MG TAB PO SCH ×2 (13:04→21:10)
[2021-04-09 14:11] LABS: BUN/Creatinine Ratio 5; Blood Urea Nitrogen 5 mg/dL (9-20); Hemolysis Index 2
[2021-04-09] MEDS ORDERED: traZODone 50 MG TAB PO SCH (22:00)
[2021-04-10 00:19] LABS: BUN/Creatinine Ratio 8; Blood Urea Nitrogen 9 mg/dL (9-20); Calcium 9.3 mg/dL (8.4-10.2); Hemolysis Index 2
[2021-04-10 05:28] VITALS: BP 107/68
[2021-04-10] MEDS: HEPARIN 5,000 UNIT/1 ML VIAL SUB-Q SCH (06:11)
[2021-04-10 06:32] LABS: BUN/Creatinine Ratio 7; Blood Urea Nitrogen 7 mg/dL (9-20); Calcium 8.8 mg/dL (8.4-10.2); Hemolysis Index 7
--- NOTE | 2021-04-10 07:45 | Discharge Summary ---
Providers - Providers Date of Admission: 04/09/21 10:16 Attending physician: PAMELLA SERRANO MD 04/08/21 19:57 Consult to Mental Health [CONS] Stat Reason For Exam: psychosis 04/08/21 21:07 Consult to Physician [CONS] Urgent Comment: Consulting Provider: MIROSLAVA MIJARES Physician Instructions: Reason For Exam: hyponatremia 04/09/21 10:17 psychiatry consult [Consult to Mental Health] [CONS] Stat Reason For Exam: Psychc eval Primary care physician: PLASMA PROCESSING TECHNICIAN Hospitalization Reason for admission: Hyponatremia Condition: Good Hospital course: 46-year-old -[place]yp[place] male with known history of mental illness who lives in a foster home was brought into the emergency room today because of bizarre and disorganized behavior. Most of the history was gotten from the ER staff as patient is now willing to give any history at this time. He however is not very clear as to how he arrived in the emergency room. He will not answer any further questions. According to ER staff he was able to respond to some questions earlier today. He denies any homicidal suicidal ideations at that time. He is not sure if he takes any medications. Patient is here for medical clearance for further psychiatric evaluation. Work-up in the emergency room today, significant findings were that of sodium of 123. Urine studies is currently being awaited. CT scan of the head is negative Asbestos Brake Lining Finisher on-call was consulted by ER physician and recommendation is to have patient on fluid restriction. BMP every 4 hours and also to be placed on sodium tablets. 04/09: Patient who also is a 1013 has been seen by psychiatry believes this underlying schizophrenia and takes "ativan, klonopin, clozaril, trazodone and seroque He has a history that includes medications such as He lives with a foster family. Per the act team from [place] the patient has recurrent hyponatremia this could be related to his insatiable intake of fluids. We will continue to monitor for gradual correction. [facility] believes that they may be able to take the patient to their facility tomorrow as the patient requires inpatient psych management. 04/10: Patient remained stable this morning sodium has improved. He is cleared for discharge with the [place] act team. (1) schizophrenia Current Visit: Yes Status: Acute Plan to address problem: Patient has known history of mental illness. Will monitor mental status and place consult to mental health for further evaluation. (2) Hyponatremia Current Visit: Yes Status: Acute Plan to address problem: Patient to be placed on fluid restriction and also placed on sodium tablets. Consult placed to nephrology for evaluation. 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 GENERAL: The patient appears normally developed, Vital signs as documented. HEAD: No signs of head trauma. EYES: Pupils are equal. Extraocular motions intact. EARS: Hearing grossly intact. MOUTH: Oropharynx is normal. NECK: No adenopathy, no JVD. CHEST: Chest with clear breath sounds bilaterally. No wheezes, rales, or rhonchi. CARDIAC: Regular rate and rhythm. S1 and S2, without murmurs, gallops, or rubs. VASCULAR: No Edema. Peripheral pulses normal and equal in all extremities. ABDOMEN: Soft, non tender and non distended. No rebound or guarding, and no masses palpated. Bowel Sounds normal. MUSCULOSKELETAL: Good range of motion of all major joints. Extremities without clubbing, cyanosis or edema. NEUROLOGIC EXAM: Awake but not speaking at least to me but spoke to the nurse. Follows some commands. No focal sensory or strength deficits. PSYCHIATRIC: Mood normal. SKIN: detail exam as documented in skin assessment - Constitutional Vitals: Temp Pulse Resp BP Pulse Ox 98.8 F 90 20 107/68 97 04/10/21 05:09 04/10/21 05:09 04/10/21 05:09 04/10/21 05:09 04/10/21 05:09 Plan Activity: advance as tolerated, fall precautions Diet: low fat Special Instructions: restrict fluid intake to (1200CC/DAY), record daily weights, record daily BP diary Plan of Treatment: FURTHER MANAGEMENT INCLUDING PER [facility] Psych ACT Team Follow up with: PRIMARY CAREMD [Primary Care Provider] - 3-5 Days
[2021-04-10 09:18] LABS: BUN/Creatinine Ratio 6; Blood Urea Nitrogen 7 mg/dL (9-20); Calcium 9.1 mg/dL (8.4-10.2); Hemolysis Index 4
--- NOTE | 2021-04-10 09:57 | Progress Note ---
Assessment and Plan Impression * Hyponatremia * History of psychiatric disorder Recommendations * Patient is clinically euvolemic at this time. 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 Patient does admit to drinking a lot of water. His urine specific gravity is also very low and patient is self diuresing at this time. His urine osmolality is 49 and urine sodium is 10 * Serum sodium has corrected spontaneously. However it is going up too rapidly. Add intravenous dextrose * Avoid medications that can aggravate hyponatremia Subjective Date of service: 04/10/21 Interval history: Patient is awake and alert. However somewhat confused. Appears comfortable. Objective - Vital Signs Vital signs: Vital Signs - 12hr 04/10/21 04/10/21 05:00 05:09 Temperature 98.8 F Pulse Rate 90 Respiratory 20 Rate Blood Pressure 107/68 O2 Sat by Pulse 98 97 Oximetry - General Appearance General appearance: well-developed, well-nourished, appears stated age EENT: PERRL, mucous membranes moist Neck: no JVD, no thyromegaly, no carotid bruit, supple Respiratory: Present: Clear to Ascultation Cardiology: regular, normal heart rate, S1S2, no murmurs Gastrointestinal: normal, normoactive bowel sounds Integumentary: no rash, other (No edema) - Lab 04/08/21 21:22 04/10/21 08:47 Most recent lab results Calcium 9.1 mg/dL (8.4-10.2) 04/10/21 08:47 Urine Creatinine 20.3 mg/dL (0.1-20.0) H 04/09/21 05:30 Urine Sodium 10 mmol/L 04/09/21 05:30 Medications & Allergies - Medications Allergies/Adverse Reactions: Allergies No Known Allergies Allergy (Verified 04/08/21 18:03) Home Medications: Home Medications Medication Instructions Recorded Confirmed Last Taken Type LORazepam [Lorazepam] 2 mg PO BID 04/10/21 04/10/21 Unknown History Mcconnell Carbonate ER [Lithobid ER] 450 mg PO BID 04/10/21 04/10/21 Unknown History Metoprolol Xl [Metoprolol 25 mg PO QDAY 04/10/21 04/10/21 Unknown History SUCCINATE ER TAB] Paliperidone Palmitate [Invega 117 mg IM Q28D 04/10/21 04/10/21 03/20/21 History Sustenna] amLODIPine [Norvasc] 5 mg PO DAILY 04/10/21 04/10/21 Unknown History cloZAPine 100 mg PO QAM 04/10/21 04/10/21 Unknown History cloZAPine 400 mg PO QHS 04/10/21 04/10/21 Unknown History polyethylene glycoL 3350 [Miralax 17 gm PO PRN PRN 04/10/21 04/10/21 Unknown History 3350] traZODone [Desyrel] 100 mg PO QHS 04/10/21 04/10/21 Unknown History Active Medications: Generic Name Dose Route Start Last Admin Trade Name Freq PRN Reason Stop Dose Admin Acetaminophen 650 mg 04/08/21 22:28 Acetaminophen 325 Mg Tab PO Q4H PRN Pain MILD(1-3)/Fever >100.5/BLANCO Clonazepam 0.25 mg 04/09/21 12:00 04/09/21 21:10 Clonazepam 0.5 Mg Tab PO 0.25 mg BID LORI Administration Haloperidol Lactate 5 mg 04/08/21 19:58 Haloperidol Lactate 5 Mg/1 Ml Inj IM Q6HR PRN Agitation Heparin Sodium (Porcine) 5,000 unit 04/09/21 06:00 04/10/21 06:11 Heparin 5,000 Unit/1 Ml Vial SUB-Q 5,000 unit Q8HR LORI Administration Lorazepam 2 mg 04/08/21 19:58 Lorazepam 2 Mg/Ml Vial IM Q4HR PRN Agitation Magnesium Hydroxide 30 ml 04/08/21 22:28 Magnesium Hydroxide (Mom) Oral Liqd Udc PO Q4H PRN Constipation Morphine Sulfate 2 mg 04/08/21 22:28 Morphine 2 Mg/1 Ml Inj IV Q4H PRN Pain, Moderate (4-6) Morphine Sulfate 4 mg 04/08/21 22:28 Morphine 4 Mg/1 Ml Inj IV Q4H PRN Pain , Severe (7-10) Ondansetron HCl 4 mg 04/08/21 22:28 Ondansetron 4 Mg/2 Ml Inj IV Q8H PRN Nausea And Vomiting Quetiapine Fumarate 50 mg 04/09/21 12:00 04/09/21 21:10 Quetiapine 25 Mg Tab PO 50 mg BID LORI Administration Sodium Chloride 10 ml 04/09/21 10:00 04/09/21 21:16 Sodium Chloride 0.9% 10 Ml Flush Syringe IV Not Given BID LORI Sodium Chloride 10 ml 04/08/21 22:28 Sodium Chloride 0.9% 10 Ml Flush Syringe IV PRN PRN LINE FLUSH Trazodone HCl 50 mg 04/09/21 22:00 04/09/21 21:10 Trazodone 50 Mg Tab PO 50 mg QHS LORI Administration
[2021-04-10] MEDS ORDERED: DEXTROSE 5% IN WATER 1,000 ML IV SCH (10:00)
[2021-04-10] MEDS: QUEtiapine 25 MG TAB PO SCH (10:45)
[2021-04-10] MEDS: clonazePAM 0.5 MG TAB PO SCH (10:46)
--- NOTE | 2021-04-10 12:17 | Progress Note ---
Subjective - Reason for Consult Consult date: 04/10/21 Reason for consult: Psychosis - Chief Complaint Chief complaint: The patient was seen today. He is calm and cooperative. He is slow to respond. He denies SI/HI. When asked if he heard voices, he says sometimes. He then just stares at me. The patient is under the [facility] team. I spoke with Jones who's apart of that team and familiar with the patient and his care. He says the patient is on clozaril and that's the treatment regimen that has been working for him. He says the symptoms and behaviors I described to him are baseline for this patient. He says the patient will says he hears voices and sees things if asked. He also says most of the time he stares and is slow to respond. He says the patient has chronic catatonia. Jones says they are trying to get the patient to new facility home and he's was supposed to had been there today. He says it is ran by an RN. Jones also gave me the patient's psychiatrist name. I called him at [phone] but did not get a response either time. I also called the hospital pharmacy to see if we had clozaril. [facility], pharm says hospital does not keep it. Psych will sign off and allow the patient to discharge to the care of his ACT team to prevent disruption of medication treatment, and maintain continuity of care. REVIEW OF SYSTEMS Constitutional: Negative for weight loss ENT: Negative for stridor Respiratory: Negative for cough or hemoptysis All other systems reviewed and are negative MENTAL STATUS EXAMINATION General Appearance and Behavior: Age appropriate, good hygiene, wearing appropriate clothes, calm, staring intensely Cooperation: participating Psychomotor Behavior: unremarkable and within normal limits Mood: fine Affect and affective range: restricted Thought Process: circumstantial Thought Content: None Speech: Normal volume, Regular rate and rhythm, Suicidal Ideation: Denies Homicidal Ideation:Denies Hallucinations: auditory "sometimes" Delusions: None elicited Impulse Control: Limited Insight and Judgment: limited Memory: Limited Attention: Distracted Orientation: Alert, oriented Assessment and Plan (1) Schizophrenia Current Visit: Yes Status: Acute Treatment Plan d/c 1013 continue previously prescribed meds Sitter: per primary Medical: per primary Disposition: Do not recommend acute psychiatric inpatient treatment once medically cleared. The patient is under care of [facility]'s ACT team. Jones who manages his care says he will be at facility he's going to receive the patient. He says address was given to . Will sign off. Thanks Case staffed with Dr. Streeter Mental Status Exam - Vital signs Last Vital Signs Temp 98.8 F 04/10/21 05:09 Pulse 90 04/10/21 05:09 Resp 20 04/10/21 05:09 BP 107/68 04/10/21 05:09 Pulse Ox 97 04/10/21 05:09
--- NOTE | 2021-04-16 10:22 | Electrocardiograph Report ---
[facility] Test Date: 2021-04-08 Test Time: 20:07:16 Pat Name: ZENON GORDON Department: Room: A389 Gender: M Turn Operator: JHONNY : 1975 Requested By: PAMELLA SERRANO Order Number: [id number] Reading MD: Ronal Landers Measurements Intervals [place] Rate: 84 P: 5 LA: 165 QRS: 56 QRSD: 97 T: 51 QT: 371 QTc: 440 Interpretive Statements Sinus rhythm Borderline inferior Q waves No previous ECG available for comparison Electronically Signed On 04-16-2021 10:22:18 EDT by Ronal Landers
== END 2021-04-10 14:00 | disposition home or self-care (01) | DRG 641 ==
LOC: ED 17:57 → 3A 22:22 → OBSVTOIN 04-09 10:16 → 3A 04-09 16:29
PROVIDERS: ADMIT Internal Medicine Geriatric Medicine; ATTEND Internal Medicine
DX: E87.1 Hypo-osmolality and hyponatremia (principal); F20.9 Schizophrenia, unspecified; Z20.822 Contact with and (suspected) exposure to COVID-19; R63.1 Polydipsia
CPT/HCPCS: 36415; 70450; 71045; 80048; 80164; 80178; 80185; 80307; 80320; 81001; 82436; 82550; 82570; 83930; 83935; 84133; 84300; 84443; 84550; 85025; 93005; G0378; G0480; J1644; J2060; J7070; U0003